=== PATIENT | male | born 1995 | race Caucasian/White ===

== ENCOUNTER 2016-05-07 13:21 | Emergency (ER) | payer SELFPAY ==
[2016-05-07] MEDS ORDERED: Lidocaine 1% 10 MG/ML - 20 ML VIAL SUBCUT ONE (14:33)
[2016-05-07 14:36] VITALS: RESP 18; TEMP 98
[2016-05-07] MEDS ORDERED: BACITRACIN 0.9 GM PACKET OINT TOPICAL SCH (15:00)
--- NOTE | 2016-05-07 18:09 | PDOC ---
Facial / Scalp Injury HPI - General Chief Complaint: Trauma Stated Complaint: scalp laceration, severe headache, neck pain Date Seen by Provider: 05/07/16 Time Seen by Provider: 13:25 Source: POSITIVE: Patient Exam Limitations: POSITIVE: No limitations Nurse's Notes Reviewed & Considered: Yes - History of Present Illness Initial Comments: The patient is a 21-year-old male. He states he struck the right frontal temporal area of his head on the heavy lid of a trash bin as the lid sprung open. 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 He thinks he probably was not knocked unconscious. He does complain of a severe circumferential headache. He also complains of pain over the posterior cervical spine. He has an approximately 2 cm scalp laceration to the right frontal temporal area of the scalp. No focal sensory or motor symptoms. No paresthesia. 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 DENIES: Dazed, Seizure, Trouble Breathing, Memory Impairment, Lost Consciousness, Other Duration of Impaired Consciousness (in minutes):: 0 Any Prior Injuries Related to Current Complaint?: No - Patient Home Medications Home Medications: Home Medications NK [No Home Medications Reported] 05/07/16 - Patient Allergies Allergies/Adverse Reactions: Allergies Allergy/AdvReac Type Severity Reaction Status Date / Time No Known Allergies Allergy Verified 05/07/16 13:35 Past Medical History - heen HEENT History: Denies History Cardiovascular History: Denies History Respiratory History: Denies History Gastrointestinal History: Denies History Genitourinary History: Denies History Endocrine History: Denies History Musculoskeletal History: Denies History Prosthesis or Implant: Yes (TUBE/LEFT KNEE) Additional Musculoskeletal History: LEFT KNEE PAIN Neurological History: Denies History Blood Disorders: Denies History Psychiatric History: ADHD, ADD History of Sexually Transmitted Diseases: No Cancer History: Denies History In Past Year Been Physically Harmed or Verbally Threatened: No History of MDRO: No History of Other Communicable Diseases: No Tobacco Use: Current Every Day Smoker Alcohol Use: Occasionally Substance Use Type: None Previous Surgical History: No Significant Family History: No pertinent family hx Past Medical History Reviewed: Reviewed - No Changes ROS - Limitations ROS Limitations: No Limitations Constitution: REPORTS: Denies Symptoms Cardiovascular: REPORTS: Denies Cardiac Symptoms Respiratory: REPORTS: Denies Resp Symptoms Neurological: REPORTS: Headache Gastrointestinal: REPORTS: Denies GI Symptoms Endocrine: REPORTS: Denies Symptoms Musculoskeletal: REPORTS: Neck Pain (Neck pain) Genitourinary: REPORTS: Denies Symptoms Eyes: REPORTS: Denies Symptoms ENT: REPORTS: Denies Symptoms Skin: REPORTS: Other (2 cm laceration right frontal temp oral area; see diagram) Lympathic: REPORTS: Denies Lympathic Symptoms Immunologic: POSITIVE: Denies Symptoms Psychiatric: POSITIVE: Denies Psych Symptoms Facial Exam - General Appearance General Appearance: POSITIVE: Alert, Cooperative, No Acute Distress. NEGATIVE: No Evidence of Trauma (Scalp laceration as above; see diagram) - HEENT Head / Face: POSITIVE: No Facial Swelling. NEGATIVE: Atraumatic (Scalp laceration as above; see diagram), Normal Inspection Eyes: POSITIVE: Inspection Normal, PERRL, EOM's Intact, Eyelids Uninjured, Conjunctivae Uninjured, No Nystagmus, No Globe Trauma, Sclera Normal, Normal Corneal Inspection, Normal Fundoscopic Exam, No Papilledema Ears: POSITIVE: Ears Normal Inspection, TM Normal Inspection, Auricle Normal, External Canal Normal Nose: POSITIVE: Inspection Normal, No Apparent Trauma, Nares Normal, No CSF Leak Oropharynx: POSITIVE: External Inspection Nml, Pharynx Inspect. Nml, Airway Intact, Voice Normal, Moist Mucous Membranes, No Oral Injury, Lips Normal, Gums Normal, No Drooling, No Thrush, Normal Gag Reflex Dental: POSITIVE: No Dental Injury - Pupil Size Pupil Size: 4 mm: Bilateral (PERRLA) - Neck/Back Neck: POSITIVE: Trachea Midline, Pain On Movement, Midline Tenderness, See Diagram. 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 As Tested, Motor Normal, Sensation Normal, Mood Appropriate, Affect Appropriate, Other (Patient placed in cervical immobilization shortly after arrival to the emergency room) - Respiratory / CVS Respiratory / CVS: POSITIVE: Chest Non Tender, No Ecchymosis, Breath Sounds Normal, No Respiratory Distress, Heart Sounds Normal, Regular Rate/Rhythm Peripheral Pulses: Radial (R): 2+, Radial (L): 2+ - Abdomen Abdomen: Soft: (All Quadrants), Normal Bowel Sounds: (All Quadrants), Denies Tenderness: (All Quadrants), No Splenomegaly: (All Quadrants), No Hepatomegaly: (All Quadrants), No Guarding: (All Quadrants), No Rebound: (All Quadrants), No Palpable Pulse: (All Quadrants), No Palpabale Mass: (All Quadrants), No Distention: (All Quadrants), No Rigidity: (All Quadrants) - Extremities Extremity: Non-Tender: (All Extremities), Normal ROM: (All Extremities), Normal Inspection: (All Extremities) - Skin Skin: POSITIVE: Other (2 cm superficial scalp laceration right frontal temp oral area; see diagram) Images - Head Head: 1 - Scalp laceration 2 - Tenderness on palpation Procedures - Laceration/Wound Repair Did patient have a laceration repair: No Site of Laceration/Wound: Right frontal temp oral area of scalp Wound Length (cm): 2 Wound's Depth, Shape: Superficial, Linear Skin Prep: Other (Wound copiously cleansed with normal saline) Wound Explored: Clean Wound Debrided: Minimal Procedure Note:: Alternatives of care for the patient's scalp laceration discussed with patient. Patient adamantly declines to have the wound repaired primarily. The wound was therefore copiously cleansed with normal saline. The wound should heal well by secondary intention. Facial / Scalp Injury Progress - Results Reviewed by me Xrays/CTs/US Reviewed: Yes Discussed with Radiologist: Yes Radiology Results: POSITIVE: Other (CT scan head and cervical spine without contrast both normal per radiologist) - Patient's Progress Pain Medication Addressed: POSITIVE: Yes (Recommended Advil or Tylenol) School/Work Release Addressed: POSITIVE: Not Applicable Re-Examine Time: 14:25 Re-Examine Comment: Headache much less upon discharge. Alert and oriented. Status: POSITIVE: Improved, Re-Examined - Consult Counseled: POSITIVE: Patient, RE: Radiology Results, RE: DX, RE: Need for F/U Patient Care Time - Estimated PCT Patient Care Time (In Minutes): 30 Vital Signs - Recent Vital Signs Vital Signs: Vital Signs (Last 8 hours) Temp Pulse Resp BP Pulse Ox 05/07/16 13:25 98 F 80 18 132/92 95 - VS Reviewed Vital Signs Reviewed: Yes Discharge Clinical Impression: Concussion, Scalp laceration, Cervical strain, acute Discharge Disposition: Discharged to Home Condition: Fair Patient Instructions Given at Discharge: Cervical Strain (ED), Laceration (ED) , Concussion (ED) Additional Instructions: You may have had a mild concussion. However, your CAT scan of the head is normal. You also have a strain to your neck, bur CAT scan of your cervical spine shows no fractures or dislocations. You have a small scalp laceration, which you have elected not to suture. This laceration should heal without stitches. Wash laceration well with soap and water. Return any time at first sign of infection, or if condition worsens in any way. Return if you develop confusion, persistant vomiting or any other neurologic symptoms. Tylenol or Advil for discomfort. Follow Up With: NONE,NONE [Primary Care Provider] - (Instructions as above. Return as necessRY.)
--- NOTE | 2016-05-07 21:49 | DI ---
CT CERVICAL SPINE SCAN, 05/07/2016 1:34 PM : Clinical History: Trauma. Previous Exam: None at this facility. Scans are performed from the T2-3 disc space to the base of the skull without IV contrast. Sagittal a nd coronal reformatted images are generated. The vertebral bodies are of normal height and size. The disc spaces are normal in height. No fracture s are identified. Posterior alignment and lateral masses are normal. C1 articulates normally with C2 and the occiput. Prevertebral soft tissue planes are normal. The C2-3 through C6-7 disc spaces all show very minimal midline bulging but not herniated discs witho ut canal or neural foraminal stenosis. The lower disc spaces are obscured by scan artifacts. READING: Normal CT cervical spine scan.
--- NOTE | 2016-05-07 21:49 | DI ---
CT HEAD SCAN WITHOUT IV CONTRAST, 05/07/2016 1:34 PM : Clinical History: Trauma. Previous Exam: None at this facility. Scans are obtained from the foramen magnum to the vertex without IV contrast. The 4th, 3rd, and lateral ventricles are of normal size, shape, position, and contour for the patient 's age. There are no abnormal areas of increased or decreased density. Specifically, there is no evid ence of an acute intracranial hemorrhagic focus. There are no extracerebral mantles or shift of the m idline structures. Bone window evaluation is normal. The paranasal sinuses are normal. READING: Normal non contrast CT head scan.
== END 2016-05-07 15:10 | disposition home or self-care (01) ==
LOC: ER 13:21
DX: S06.0X0A Concussion without loss of consciousness, initial encounter (principal); S16.1XXA Strain of muscle, fascia and tendon at neck level, initial encounter; W22.8XXA Striking against or struck by other objects, initial encounter; Y99.0 Civilian activity done for income or pay
CPT/HCPCS: 12001; 70450; 72125; 99282